=== PATIENT | female | born 1960 | race Caucasian/White ===

== ENCOUNTER 2018-03-21 15:16 | Emergency (ER) | payer OTHER ==
[~2018-03-21] VITALS: Ht 165.1 cm; Wt 49.0 kg
[2018-03-21 15:21] VITALS: BP 127/76
--- NOTE | 2018-03-21 16:28 | CT SCAN REPORT ---
EXAMINATION: CT HEAD WITHOUT CONTRAST CLINICAL INFORMATION: Pain following injury. Trauma to head. COMPARISON: 02/24/2010. TECHNIQUE: Contiguous helical images of the brain were obtained without IV contrast. Multiplanar reconstructions were performed. DLP: 621 mGy-cm. FINDINGS: There are no pathologic extra-axial fluid collections. The lateral, third, fourth ventricles are prominent, though concordant with the appearance of the sulci. There is no evidence for acute intraparenchymal hemorrhage or infarct there is encephalomalacic change within the left frontal lobe.. There is neither mass nor mass effect. There is no shift of midline structures. The paranasal sinuses and mastoid air cells are clear. There are no osseous lesions. There is soft tissue swelling and a subcutaneous hematoma overlying the left frontal bone and orbit. IMPRESSION: No evidence for acute intracranial injury. Encephalomalacic change within the left frontal lobe. Prominence to the lateral ventricles which is concordant with the appearance of the sulci. 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
--- NOTE | 2018-03-21 16:44 | ED GENERAL ADULT ---
History of Present Illness General Chief Complaint: Facial or Head Injury Stated Complaint: FACIAL INJURY S/P FALL Source: patient Exam Limitations: no limitations Vital Signs & Intake/Output Vital Signs & Intake/Output Vital Signs Date Time Temp Pulse Resp B/P B/P Pulse O2 O2 Flow FiO2 Mean Ox Delivery Rate 03/21 1521 97.1 62 18 127/76 98 Room Air Allergies Uncoded Allergies: DANDER (SNEEZING 03/21/18) Triage Note: PT STATES THAT SHE WAS IN [employer] AND SHE TRIPPED AND FELL FACE FIRST TO TILE FLOOR, PT NOTED WITH SWELLING AND BRUISING TO FOREHEAD ABOVER HER L EYE AND SMALL CUT TO HER LOWER LIP. DENIES LOC , PT CONCERNED DUE TO SHE HAS A HISTORY OF A BLEED 8 YEARS AGO AFTER A FALL Triage Nurses Notes Reviewed? yes Onset: Abrupt Duration: hour(s): Timing: single episode today HPI: 57-year-old female with a history of seizures, intracranial hemorrhage, RVD presenting status post a mechanical fall approximately 2 hours ago. Patient reports that she was shopping at [employer] and tripped over her foot landing face first on the floor. Denies LOC. Denies headache, nausea, vomiting, visual changes. Patient presents with her who denies any mental status changes. Patient expresses concern because she had a mechanical fall 8 years ago that resulted in intracranial hemorrhage. (Sheila Joe) Past History Travel History Traveled to [place] past 21 day No Medical History Any Pertinent Medical History? see below for history Neurological: seizure, BLOOD ON BRAIN EENT: NONE Cardiovascular: RVD Respiratory: NONE Gastrointestinal: NONE Hepatic: NONE Renal: NONE Musculoskeletal: NONE Psychiatric: NONE Endocrine: NONE Blood Disorders: NONE Surgical History Surgical History: non-contributory Psychosocial History Who do you live with Spouse What is your primary language Burmese Tobacco Use: Never used ETOH Use: denies use Illicit Drug Use: denies illicit drug use Family History Hx Contributory? No (Sheila Joe) Review of Systems Review of Systems Constitutional: Reports: no symptoms. EENTM: Reports: no symptoms. Respiratory: Reports: no symptoms. Cardiovascular: Reports: no symptoms. GI: Reports: no symptoms. Genitourinary: Reports: no symptoms. Musculoskeletal: Reports: see HPI. Skin: Reports: see HPI. Neurological/Psychological: Reports: no symptoms. Hematologic/Endocrine: Reports: no symptoms. Immunologic/Allergic: Reports: no symptoms. All Other Systems: Reviewed and Negative (Sheila Joe) Physical Exam Physical Exam General Appearance: well developed/nourished, no apparent distress, alert, awake , comfortable Head: left forehead hematoma Eyes: Bilateral: normal appearance, PERRL, EOMI. Ears, Nose, Throat: normal ENT inspection, abrasion to left lower lip Neck: normal inspection, full range of motion, no midline tenderness Respiratory: normal breath sounds, chest non-tender, lungs clear Cardiovascular: regular rate/rhythm Gastrointestinal: soft, non-tender Back: normal inspection, normal range of motion, no vertebral tenderness Extremities: normal range of motion, right knee hematoma, and restrictive range of motion at the knee joint, right lower extremity is neurovascularly intact with 2+ distal pulses, patient is able to bear weight and ambulate with a steady gait. 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 No CVA/TIA Diagnosis: No Sepsis Present: No Sepsis Focused Exam Completed? No (Sheila Joe) Progress Differential Diagnoses I considered the following diagnoses in my evaluation of the patient: [Hematoma versus facial contusion versus ICH, low concern for facial fracture versus vertebral fracture] Plan of Care: CT head IMPRESSION: No evidence for acute intracranial injury. Encephalomalacic change within the left frontal lobe. Prominence to the lateral ventricles which is concordant with the appearance of the sulci. This is medical detail representative of slightly age discordant cerebral atrophy, slightly progressed from prior exam. No indication for CT C-spine based on Nexus criteria Instructed to use Tylenol and Motrin as needed for pain. Counseled on supportive care and strict return precautions. Will follow up with her PMD for reevaluation. Initial ED EKG: none (Sheila Joe) Departure Departure Disposition: HOME OR SELF CARE Condition: Stable Clinical Impression Primary Impression: Closed head injury Secondary Impressions: Fall, Traumatic hematoma of forehead, Traumatic hematoma of right knee Referrals: Patient Has No Primary Care Dr (PCP/Family) Additional Instructions: Use tylenol or motrin as needed for pain. Apply ice to hematoma to help alleviate swelling. Follow-up with your primary care provider for reevaluation. Return to the emergency department for any worsening symptoms. 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 I have also reviewed all the pertinent lab results and diagnostic results. I agree with the findings and the plan of care as documented in the PA's/AIR[employer]CH[employer]'s documentation. [X] I have reviewed the ED Record and agree with the PA's/AIR[employer]CH[employer]'s documentation. [] Additions or exceptions (if any) to the PAs/AIR[employer]CH[employer]'s note and plan are summarized below: [] (Deisy GUIDO,Rakesh Patel) Critical Care Note Critical Care Note Critical Care Time: non-applicable (Sheila Joe)
== END 2018-03-21 17:03 ==
LOC: ERH 15:16
DX: S09.90XA Unspecified injury of head, initial encounter (principal); S00.83XA Contusion of other part of head, initial encounter; S80.01XA Contusion of right knee, initial encounter; W19.XXXA Unspecified fall, initial encounter; Y92.512 Supermarket, store or market as the place of occurrence of the external cause